=== PATIENT | female | born 1990 | race Caucasian/White ===

== ENCOUNTER 2019-11-17 09:58 | Observation (INO) ==
--- NOTE | 2019-11-14 08:53 | Anesthesiology Consultation ---
Date of Service November 14, 2019 Assessment & Plan (1) Encounter for pre-operative examination: Patient reports that she very rarely wears a mask due to anxiety and SOB. She did travel to [place] earlier this month, but returned on 10/25 ( > 2 weeks prior to COVID testing). Since then has been at home, does go out grocery shopping and has seen some family members. Denies any known COVID+ or ill contacts. Denies any symptoms other than baseline HUSSEIN. COVID testing being done today, 11/13, and result will have to be reviewed AM DOS. If not resulted, will need rule. HCG AM DOS Chart Review Chart Review: Acceptable Risk for Surgery and Patient NOT seen in Pre Admission Testing History Surgery Operation Date: 11/17/19 12:00 Proposed Procedures p Panniculectomy - Idania Eugene MD Height/Weight Height: 5 ft 4 in Weight: 123.377 kg Allergies Allergy/AdvReac Type Severity Reaction Status Date / Time adhesive tape Allergy Rash Verified 11/11/19 10:40 Penicillins Allergy Rash Verified 11/11/19 10:40 Medications Home Medications Medication Instructions Recorded Confirmed Last Taken buspirone 7.5 mg tablet 7.5 mg PO BID PRN 03/25/19 11/11/19 Unknown enoxaparin 40 mg/0.4 mL 40 mg SQ DAILY 7 Days #2.8 ml 10/27/19 11/11/19 Unknown subcutaneous syringe oxycodone-acetaminophen 5 mg-325 1 tab PO Q4H PRN #18 tab 10/27/19 11/11/19 Unknown mg tablet albuterol sulfate [Ventolin HFA] 1 puff INHALATION QID PRN 11/11/19 11/11/19 Unknown Past Medical History Medical History Anxiety Depression Lung nodule reason for inhaler. Morbid obesity Patient is a currently breast-feeding mother Past Family History Family History Grandfather (Paternal) Diabetes Breast cancer Aunt Breast cancer Grandmother (Maternal) Deep vein thrombosis Other Pulmonary embolism Past Surgical History Surgical History H/O foot surgery to remove Foreign Body (glass) History of ankle surgery with hardware (bilateral) History of section x2 History of cholecystectomy [place] teeth removed Social History Smoking Status: Never smoker Do You Dip or Chew Tobacco: No Hx Alcohol Use: Yes alcohol intake frequency: a few times a month Hx Substance Use: No substance use type: does not use Testing Laboratory Results 11/14/19 WBC: 10.16 H/H: 12.1/37.8 PLATELETS: 337 SODIUM: 142 POTASSIUM: 4.1 CHLORIDE: 109 CO2: 27 BUN: 10 CREATININE: 0.71 GLUCOSE: 83 PT: 10.2 PTT: 26.2 INR: 1.0 COVID19: pending
[~2019-11-17 09:58] MED LIST: CLINDAMYCIN 600 MG/54 ML BAG IV SCH; LR 15ML/HR IV SCH
[2019-11-17] MEDS ORDERED: DEXAMETHASONE SOD INJ 4 MG/ML VIAL ONE (11:32)
[2019-11-17] MEDS ORDERED: ONDANSETRON INJ 2 MG/ML 2 ML VIAL ONE ×2 (11:32→16:13)
[2019-11-17] MEDS ORDERED: ePHEDrine sulfate 50 MG/ML AMP ONE (11:32)
[2019-11-17] MEDS ORDERED: NEOSTIGMINE METHYLSULFATE 5 MG/5 ML SYR ONE (11:32)
[2019-11-17] MEDS ORDERED: fentaNYL citrate 100 MCG/2 ML VIAL ONE (11:32)
[2019-11-17] MEDS ORDERED: LIDOCAINE HCL 2% 2 ML VIAL/AMP(20MG/ML) INFIL ONE (11:32)
[2019-11-17] MEDS ORDERED: GLYCOPYRROLATE 0.2 MG/ML VIAL ONE (11:32)
[2019-11-17] MEDS ORDERED: SUCCINYLCHOLINE CHLORIDE 20 MG/ML 10 ML VIAL IV ONE (11:32)
[2019-11-17] MEDS ORDERED: PHENYLEPHRINE HCL 10 MG/ML VIAL ONE (11:32)
[2019-11-17] MEDS ORDERED: PROPOFOL IV EMULSION 10 MG/ML 20 ML VIAL IV ONE (11:32)
[2019-11-17] MEDS ORDERED: MIDAZOLAM HCL 1 MG/ML 2ML VIAL ONE (11:32)
[2019-11-17] MEDS ORDERED: HYDROmorphone INJ 2 MG/ML SYR/VIAL IV PRN (11:34)
[2019-11-17] MEDS ORDERED: ATROPINE SULFATE 0.1 MG/ML 10ML SYR IV PRN (11:34)
[2019-11-17] MEDS ORDERED: ePHEDrine sulfate 50 MG/ML AMP IV PRN (11:34)
[2019-11-17] MEDS ORDERED: ONDANSETRON INJ 2 MG/ML 2 ML VIAL IV PRN ×2 (11:34→16:33)
[2019-11-17] MEDS ORDERED: METOCLOPRAMIDE HCL INJ 5 MG/ML 2 ML VIAL ONE (11:37)
--- NOTE | 2019-11-17 12:37 | History & Physical Bridge Note ---
Date of Service November 17, 2019 History & Physical Bridge Note I have examined the patient, reviewed the History & Physical and in the interval since the performance of the History & Physical I have noted the following changes of clinical significance: no changes noted
[2019-11-17] MEDS ORDERED: LIDOCAINE/EPINEPHRINE 1% 20 ML VIAL ONE (12:41)
[2019-11-17] MEDS ORDERED: BUPIVACAINE 0.25% 30 ML VIAL ONE (12:41)
[2019-11-17] MEDS ORDERED: HYDROmorphone INJ 2 MG/ML SYR/VIAL ONE (13:36)
[2019-11-17] MEDS ORDERED: SODIUM CHLORIDE 0.9% INJ 10 ML VIAL ONE (13:37)
[2019-11-17] MEDS ORDERED: ROCURONIUM BROMIDE 10 MG/ML 5 ML VIAL IV ONE (14:32)
--- NOTE | 2019-11-17 16:17 | Post Operative Brief Note ---
PG Immediate Post Op with CF Date of Surgery November 17, 2019 Pre & Post Diagnosis Operation Date: 11/17/19 12:00 Pre-Op Diagnosis: Abdominal Pannus Post-Op Diagnosis: Abdominal Pannus I identified the patient and participated in the time-out.: Yes Procedure Operation Date: 11/17/19 12:00 Actual Procedures p Panniculectomy(Not Applicable) - Idania Eugene MD Surgeon Idania Eugene MD Truck Assembler Delphine Jones PA-C Estimated Blood Loss 50 Findings Consistent with Post-Op Diagnosis Specimens Specimen Description: Fresh Specimen: A.) Abdominal Pannus - please weigh per surgeon, call #[phone] with weight Drains Vang Catheter (16 mohawk 10ml balloon latex free) and Jarrod-Hansen Drain (x3)
[2019-11-17] MEDS ORDERED: LORazepam 0.5 MG TAB PO PRN (16:33)
[2019-11-17] MEDS ORDERED: DiphenhydrAMINE HCL 50 MG/ML VIAL IV PRN (16:33)
[2019-11-17] MEDS ORDERED: PROMETHAZINE HCL 12.5 MG in SODIUM CHLORIDE 0.9% 50 ML IV PRN (16:33)
[2019-11-17] MEDS ORDERED: MoRPHine SULFATE 4 MG/ML 1 ML CARP\\VIAL IV PRN ×2 (16:33)
[2019-11-17] MEDS ORDERED: MoRPHine SULFATE 2 MG/ML CARP IV PRN (16:33)
[2019-11-17] MEDS ORDERED: OXYCODONE/ACETAMINOPHEN 5mg/325mg TAB PO PRN (16:33)
--- NOTE | 2019-11-17 16:36 | Operative Report ---
PG Post Operative Report Pre & Post Diagnosis Operation Date: 11/17/19 12:00 Pre-Op Diagnosis: Abdominal Pannus Post-Op Diagnosis: Abdominal Pannus I identified the patient and participated in the time-out.: Yes Procedure Operation Date: 11/17/19 12:00 Actual Procedures p Panniculectomy(Not Applicable) - Idania Eugene MD Surgeon Idania Eugene MD Music Store Manager Delphine Jones PA-C Estimated Blood Loss 50 Findings Consistent with Post-Op Diagnosis Specimens abdominal pannus Drains JPx2 Anesthesia Type General Complications none Disposition Disposition: Recovery Room Indications Overhanging abdominal pannus, chronic infra-pannicular irritation Description of Procedure Risks, benefits, and alternatives of the procedure were explained to the patient who agreed and signed consent. She was identified and marked in the preoperative holding area. She was brought to the operating room where she was positioned supine and placed under general anesthesia without incident. Vang catheter was placed. Surgical site was prepped and draped sterilely. A time-out procedure was performed. I reassessed my markings which included a lower horizontal abdominal incision with the midportion 8 cm above the vulvar commissure. Incision was marked bilaterally to the ASIS. I began by injecting 1% lidocaine with epinephrine kevin ng the planned incision. The lower abdominal incision was made using a 15-blade scalpel to incise epidermis and superficial dermis followed by electrocautery to incise deep dermis, subcutaneous fat, Mari's fascia down to the abdominal wall. Care was taken to bevel superiorly in order to avoid encountering the inguinal region. Electrocautery was used to elevate the anterior abdominal skin flap ligating the perforating vessels with 3-0 Vicryl ties and electrocautery. Dissection was carried up to the level of the umbilicus in the midline. At this point, a 15-blade scalpel was used to circu mscribe the umbilicus. A vertical midline incision was then made from the incision to the umbilicus and divided in the midline using electrocautery. The umbilicus was then dissected out using electrocautery down to abdominal wall. The umbilical stalk appeared viable throughout the procedure. In order to facilitate inset of the umbilicus, dissection was continued for about an additional 8 cm superior to the umbilicus through a narrow midline tunnel. At this point, the bed was flexed and the mid portion of the superior skin flap was inset above the mons pubis using 2-0 Vicryl suture. Skin flaps were marked for excision. A 15-blade scalpel was used to make these incisions and the incision was deepened through dermis, subcutaneous fat, Mari's fat using electrocautery. Three 15 Kenyan Christian drains were placed in the wound bed and brought out through a separate stab incision in the mons pubis. The drains were sutured into place using 3-0 nylon. The umbilicus was brought out through an inverted triangular incision in the abdominal wall. Prior to closure, a total of 10 mL of 0.25% Marcaine plain were injected into the fascia as well as along the incisions. Wound closure was then begun lateral to medial using 2-0 Vicryl Mari's fascia sutures, 2-0 Vicryl deep dermal sutures, 2-0 PDO running superficial Quill suture, 3-0 Monocryl running subcuticular suture. Umbilicus was brought out through the inverted triangle incision and was sutured into place using 4-0 chromic hafl buried horizontal mattress sutures. The umbilicus was dressed using Xeroform and the incision was dressed using Dermabond Prineo followed by dry dressings and an abdominal binder. The procedure was tolerated well. The patient was awakened and transferred to recovery in satisfactory condition. Delphine Jones PA-C was present and scrubbed throughout the entire procedure and was instrumental in providing retraction of the pannus and assisting in simultaneous wound closure. I attest to the content of the Intraoperative Record and any orders documented therein. Any exceptions are noted below.
[2019-11-17] MEDS: fentaNYL citrate 100 MCG/2 ML VIAL IV PRN ×3 (16:44→17:08)
--- NOTE | 2019-11-17 17:23 | Anesthesiology Progress Note ---
Date of Service November 17, 2019 Anesthesia Post Procedure Vital Signs Vital Signs: Temp Pulse Pulse Resp BP BP Pulse Ox 11/17/19 17:10 75 17 156/85 H 93 11/17/19 17:00 74 20 157/85 H 99 11/17/19 16:50 58 L 20 151/91 H 99 11/17/19 16:40 68 18 161/86 H 99 11/17/19 16:35 97.9 F 63 24 159/95 H 96 11/17/19 10:28 99.7 F H 79 16 146/88 H 98 Pain Intensity Abdomen: Pain Intensity: 5 Transfer of Care Handoff Completed per policy Notes Mental Status: alert / awake / arousable and participated in evaluation Patient Amnestic to Procedure: Yes Nausea / Vomiting: adequately controlled Pain: adequately controlled Airway Patency, RR, SpO2: stable & adequate BP & HR: stable & adequate Hydration State: stable & adequate Anesthetic Complications: no major complications apparent and Pt Satisfied with anesthetic care
[2019-11-17] MEDS ORDERED: BUSPIRONE HCL 7.5 MG TAB PO PRN (18:42)
[2019-11-17] MEDS: OXYCODONE/ACETAMINOPHEN 5mg/325mg TAB PO PRN (19:39)
[2019-11-17] MEDS: CLINDAMYCIN 600 MG in DEXTROSE 5% 50 ML IV SCH (19:47)
[2019-11-17] MEDS: D5W AND 1/2NSS + 20MEQ KCL 20 MEQ/1,000 ML BAG IV SCH (19:47)
[2019-11-18] MEDS: CLINDAMYCIN 600 MG in DEXTROSE 5% 50 ML IV SCH (02:25)
[2019-11-18] MEDS: D5W AND 1/2NSS + 20MEQ KCL 20 MEQ/1,000 ML BAG IV SCH (06:07)
[2019-11-18] MEDS: OXYCODONE/ACETAMINOPHEN 5mg/325mg TAB PO PRN (08:30)
--- NOTE | 2019-11-18 08:30 | Surgery Progress Note ---
Date of Service November 18, 2019 Assessment & Plan (1) S/P panniculectomy: Irlanda was encouraged to transition from bed to chair. She is tolerating a regular diet without issue. Pain is controlled. She did have some nausea this AM. Script for Zofran was sent to patient's pharmacy. She is ok for discharge to home. She is aware that drains are remaining at discharge. We reviewed drain care management. Both her and her significant other know that they are to measure drain output from each drain separately. She is aware that she is to begin PO Bactrim when she gets home from surgery. She was able to get her post-op pain medication script and her script for SQ Lovenox. Remainder of discharge instructions reviewed with patient. She has a post-op follow-up appointment at our office tomorrow AM. She was encouraged to call with any questions or concerns. Subjective Irlanda is resting comfortably in bed with significant other at bedside. She reports that she is feeling well. leary catheter removed this AM, which caused her a bit of nausea. She reports that she is tolerating a regular diet without issue. Her pain is controlled with PO pain medication. She has not been out of bed yet. Physical Exam Physical Exam: On physical exam- abdominal binder in place- clean/dry. TRACIE drains x [address] with serosang drainage. Surgical dressings are clean, dry, intact. Irlanda commented how excited she is about the results from her panniculectomy. Results & Data Vital Signs (Past 12 Hours) Vital Signs Temp Pulse Resp BP Pulse Ox 11/18/19 08:04 36.7 C 95 H 16 95/61 L 97 11/18/19 03:05 36.7 C 99 H 16 96/71 L 95 11/17/19 23:07 36.7 C 75 16 113/72 96 11/17/19 21:25 36.2 C L 81 16 129/79 96 11/17/19 20:45 36.8 C 73 16 97/64 L 97 PG Care Time/CCT Total # of Minutes Spent Total Time Spent with Patient: Total time spent is greater than 50% in coordination of care (as documented) at patient's floor/unit and/or counseling patient: Coding Level of Care Code None Diagnoses S/P panniculectomy Z98.890
[2019-11-18] MEDS ORDERED: MULTIVITAMIN TAB PO SCH (09:00)
[2019-11-18] MEDS ORDERED: ENOXAPARIN INJ 40 MG/0.4 ML SYR SQ SCH (09:00)
--- NOTE | 2019-11-18 13:47 | Discharge Summary ---
Date of Service Please see admission H and P. November 18, 2019 Admission HPI Per Admitting Provider Please see admission H and P. Admission Exam Per Admitting Provider Please see admission H and P. Principal Diagnosis Abdominal pannus Discharge Data Allergies Allergy/AdvReac Type Severity Reaction Status Date / Time adhesive tape Allergy Rash Verified 11/17/19 10:22 Penicillins Allergy Rash Verified 11/17/19 10:22 Procedures Performed Operation Date: 11/17/19 12:00 Actual Procedures p Panniculectomy(Not Applicable) - Idania Eugene MD Hospital Course (1) S/P panniculectomy: Irlanda is a 29-year-old female with abdominal pannus. She was taken to the OR and underwent panniculectomy. 3 TRACIE drains were placed intraoperatively as well as leary catheter. There were no intraoperative complications. She was taken to recovery and transferred to med/surg for observation. On POD #1, she was feeling a bit sore, but was overall doing well. Leary catheter was removed morning of POD #1. She was tolerating a regular diet, voiding on her own, and ambulating without issue. On exam, her vitals were stable. Her abdominal incision was clean, dry, intact, and no signs of infection. Abdominal binder was reattached following physical exam. TRACIE drains x 3 remained at discharge. We reviewed drain care management and the importance of recording output from each drain individually. She was discharged to home with instructions to follow-up in the office in 1 day. All questions were answered. Total Time Total Time Spent Total Time Spent (In Minutes): 5 Discharge Plan Discharge Items Patient Disposition: Home - Self-Care Reason For Visit: Abdominal Pannus Discharge Diagnosis: Abdominal Pannus Activity: As commented below Non-emergency contact: Surgeon Call non-emergency contact if: you have any medication questions, your pain is not controlled, your temperature is above 101.5, your wound has increased redness and your wound has increased drainage Follow-up/Referrals: Susanna Skinner MD [Primary Care Provider] - Diet: Regular Addtl Attending Provider Instructions: ACTIVITY RECOMMENDATIONS: __Normal activities _X_No bending, lifting or straining __No driving X__Driving allowed when you are off pain medications _X_Walking permitted __You should have help at home for ___ days DRESSINGS: __No dressings required _X_Keep abdominal binder and surgical dressings dry/in place until first office visit __Remove dressings ___ and leave dressings off __Apply ice ___ days __Remove dressings and reapply garment __Apply antibiotic ointment (Bacitracin, Neosporin, etc) to wounds 3-4 times/day for 10 days BATHING: _X_Keep dressings dry _X_Sponge bathing permitted __Showering permitted _X_No swimming, hot tubs or soaking in a tub MEDICATIONS: Resume previous medications unless instructed otherwise by your surgeon. _X_Do not use aspirin, Motrin, Advil or Ibuprofen as these may promote bleeding. Please use Tylenol. _X_Prescription(s) provided: Prescription for post-op pain medication and Lovenox provided at last office visit. Please use as prescribed. Prescription for post-op antibiotic sent to your pharmacy. Please begin this antibiotic at discharge. OTHER INSTRUCTIONS: X__Record drain output 2-3 times per day. SPECIAL CARE INSTRUCTIONS: * It is normal to have a mild fever after surgery. If your temperature is higher than 101.5 degrees F, please call the office at [phone]. * Constipation is a typical side effect of pain medication. An [id number] stool softener will help relieve this. * Leaking around surgical drains may occur and should not cause concern. Sometimes these drains become clogged. If this happens, remove the bulb and milk the clot out of the tube, then replace the bulb. * Drainage from wounds after liposuction is normal and should be expected. G arments will become soiled. You should protect furniture and bedding. This drainage should mostly subside within 2-3 days. Leave garments in place unless instructed to remove them. * If you have unusual drainage from a wound or are concerned you have an infection or have any questions or concerns, please call the office at [phone]. FOLLOW UP VISIT: If not already scheduled, please call the office, , when you return home after surgery to schedule an appointment to be seen in _1__ days. Pending Studies at Discharge: Yes Studies:: Pathology report. Stand-Alone Forms: [facility] Medications and AR Order Prescriptions: New ondansetron HCl [Zofran] 4 mg tablet 4 mg PO Q6H PRN (Reason: nausea and vomiting) 3 Days Qty: 12 RF: 0 Continued sulfamethoxazole-trimethoprim [Bactrim DS] 800-160 mg tablet 1 tab PO Q12H 10 Days Qty: 20 RF: 0 buspirone 7.5 mg tablet 7.5 mg PO BID PRN (Reason: Anxiety) RF: 0 oxycodone-acetaminophen [Endocet] 5-325 mg tablet 1 tab PO Q4H PRN (Reason: pain) Qty: 18 RF: 0 enoxaparin [Lovenox] 40 mg/0.4 mL syringe 40 mg SQ DAILY 7 Days Qty: 2.8 RF: 0 albuterol sulfate [Ventolin HFA] 90 mcg/actuation Hfa Aerosol Inhaler 1 puff INHALATION QID PRN (Reason: sob) RF: 0 Discharge Orders: Discharge Order (Routine); Ordered 11/18/19 Ordered By: Delphine Jones Admission Data Admit Date/Time: 11/17/19 16:46 Attending Provider: Idania Eugene Admit Provider: Idanai Eugene Primary Care Provider: Susanna Skinner Other Interventions: Discharge Summary Assessment (RN) Last Done: 11/18/19 09:40 DC Date/Time DO NOT enter until pt leaves facility: 11/18/19 14:00 Coding Level of Care Code 07593 OBS Care - Discharge Diagnoses S/P panniculectomy Z98.890
== END 2019-11-18 14:00 | disposition home or self-care (01) ==
LOC: 3W 09:58 → ASU 09:58